=== PATIENT | female | born 1965 | race Caucasian/White ===

== ENCOUNTER 2023-04-30 14:36 | Outpatient (OUT) | payer OTHER, SELFPAY ==
--- NOTE | 2023-04-30 | US_ITS ---
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 MG MAMM SCREEN 3D MICHELINE CAD, 04/18/2021. DIGITIZED_MAMMO, 02/23/2008. INDICATIONS: Breast lump N63.0 Calculator Name NCI Breast Cancer Risk Assessment Tool 5 Year Breast Cancer Risk 2.00% Lifetime Breast Cancer Risk 11.40% Personal Breast Cancer No Personal Ovarian Cancer No Treatments None Family Cancers Aunt-maternal with breast cancer at age ~40; Father with prostate cancer at age 68. LOCATION: [facility] BREAST COMPOSITION: Heterogeneously dense,which may obscure small masses. FINDINGS: DIAGNOSTIC CATEGORY 5--HIGHLY SUGGESTIVE OF MALIGNANCY. HIGH PROBABILITY OF MALIGNANCY BASED ON THE FOLLOWING: RIGHT BREAST: Within the anterior upper-outer quadrant is a new 1.8 cm slightly irregular, spiculated mass which corresponds to the patient's palpable lump. Ultrasound evaluation demonstrates a heterogeneous hypoechoic 1.5 x 1.4 x 1.2 cm irregularly marginated mass at the 10 o'clock position 2.1 cm from the nipple. Given its rapid development this is most consistent with neoplasm. Ultrasound-guided tissue sampling is recommended. LEFT BREAST: No significant suspicious finding. No significant change has occurred. RECOMMENDATIONS: ULTRASOUND-GUIDED CORE BIOPSY: RIGHT BREAST PLEASE NOTE: A NORMAL MAMMOGRAM DOES NOT EXCLUDE THE POSSIBILITY OF BREAST CANCER. A CLINICALLY SUSPICIOUS PALPABLE LUMP SHOULD BE BIOPSIED. Dictated by: Chip Matthews M.D. on 04/30/2023 at 15:42 Approved by: Chip Matthews M.D. on 04/30/2023 at 15:50
--- NOTE | 2023-04-30 15:29 | MM_ITS ---
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 MG MAMM SCREEN 3D MICHELINE CAD, 04/18/2021. DIGITIZED_MAMMO, 02/23/2008. INDICATIONS: Breast lump N63.0 Calculator Name NCI Breast Cancer Risk Assessment Tool 5 Year Breast Cancer Risk 2.00% Lifetime Breast Cancer Risk 11.40% Personal Breast Cancer No Personal Ovarian Cancer No Treatments None Family Cancers Aunt-maternal with breast cancer at age ~40; Father with prostate cancer at age 68. LOCATION: [facility] BREAST COMPOSITION: Heterogeneously dense,which may obscure small masses. FINDINGS: DIAGNOSTIC CATEGORY 5--HIGHLY SUGGESTIVE OF MALIGNANCY. HIGH PROBABILITY OF MALIGNANCY BASED ON THE FOLLOWING: RIGHT BREAST: Within the anterior upper-outer quadrant is a new 1.8 cm slightly irregular, spiculated mass which corresponds to the patient's palpable lump. Ultrasound evaluation demonstrates a heterogeneous hypoechoic 1.5 x 1.4 x 1.2 cm irregularly marginated mass at the 10 o'clock position 2.1 cm from the nipple. Given its rapid development this is most consistent with neoplasm. Ultrasound-guided tissue sampling is recommended. LEFT BREAST: No significant suspicious finding. No significant change has occurred. RECOMMENDATIONS: ULTRASOUND-GUIDED CORE BIOPSY: RIGHT BREAST PLEASE NOTE: A NORMAL MAMMOGRAM DOES NOT EXCLUDE THE POSSIBILITY OF BREAST CANCER. A CLINICALLY SUSPICIOUS PALPABLE LUMP SHOULD BE BIOPSIED. Dictated by: Chip Matthews M.D. on 04/30/2023 at 15:42 Approved by: Chip Matthews M.D. on 04/30/2023 at 15:50
== END 2023-04-30 14:37 | disposition home or self-care (01) ==
LOC: MAMMO 14:40
PROVIDERS: PCP Physician Assistant; Visit Provider Physician Assistant
DX: N63.11 Unspecified lump in the right breast, upper outer quadrant (principal)
CPT/HCPCS: 76642; 77066; G0279